=== PATIENT | female | born 1945 | race Caucasian/White ===

== ENCOUNTER → 2017-01-21 | Outpatient (CLI) | payer MEDICARE, OTHER ==
[~2017-01-21] MED LIST: ASPIRIN 81MG TA81 MG PO; AUGMENTIN1 TA2 PO; AZITHROMYCIN250 M1 PO; DELTASONE5 MG PO; DUONEB 3 MG/3 ML3 ML IH; FLONASE 50 MCG16 GM INH; LEVOFLOXACIN 5500 M1 PO; METHYLPREDNISONE4 MG; NAPROSYN500 M1 PO; PREDNISONE 20MG20 MG PO; PREDNISONE 5MG.5 MG; PREDNISONE20 MG PO; PROAIR HFA0.09 MG/AC INH; TRAMADOL50 M1 PO
--- NOTE | 2017-01-21 09:30 | RADIOLOGY REPORT PS360 ---
US RUQ-(ABD LTD)1ORGAN/QUAD/FU HISTORY: Gallstones, right-sided pain GALL STONES ORDERING PHYSICIAN: Jhonny Alvares MD PATIENT AGE: 71 years COMPARISON: CT scan of or 2617 FINDINGS: PANCREAS:Unremarkable. No obvious mass or abnormal fluid collection. No ductal dilatation LIVER:No focal liver lesions demonstrated. Homogeneous echogenicity. No intrahepatic biliary ductal dilatation evident RIGHT KIDNEY:Unremarkable. Normal size and echogenicity. No hydronephrosis GALLBLADDER:There is a prominent single gallstone measuring at least 12 mm. No gallbladder wall thickening, pericholecystic fluid, or biliary dilatation. Common bile duct is 4 mm within normal limits. IMPRESSION: Cholelithiasis
== END ==
LOC: RAD 07:20
DX: K80.20 Calculus of gallbladder without cholecystitis without obstruction (principal)